=== PATIENT | male | born 1995 ===

== ENCOUNTER 2017-04-08 12:10 | Inpatient (IN) | payer MEDICAID ==
[2017-04-08] MEDS ORDERED: Sodium Chloride 0.9% 1,000 ML IV ONE (13:09)
--- NOTE | 2017-04-08 13:15 | C.PDOC ---
History Of Present Illness 21 y/o male presents to ED with complaints of fever and myalgias headache and photophobia since . At ED patient is febrile and denies recent travel, sick contacts or any other complaints at this time. no cough sore throat, ear pain, abdominal pain, ches tpain or other complaints Time Seen by Provider: 04/08/17 13:02 Chief Complaint (Nursing): Fever History Per: Patient History/Exam Limitations: no limitations Onset/Duration Of Symptoms: Days Current Symptoms Are (Timing): Still Present Associated Symptoms: Fever, Myalgias Past Medical History Reviewed: Historical Data, Nursing Documentation, Vital Signs Vital Signs: Last Vital Signs Temp 99.8 F H 04/08/17 14:48 Pulse 84 04/08/17 14:48 Resp 22 04/08/17 14:48 BP 100/61 04/08/17 14:48 Pulse Ox 100 04/08/17 15:20 Surgical History: No Surg Hx Family History: States: No Known Family Hx - Social History Hx Tobacco Use: No Hx Alcohol Use: No Hx Substance Use: No - Immunization History Hx Tetanus Toxoid Vaccination: Yes Hx Influenza Vaccination: Yes Hx Pneumococcal Vaccination: No Review Of Systems Except As Marked, All Systems Reviewed And Found Negative. Constitutional: Positive for: Fever. Negative for: Chills Cardiovascular: Negative for: Chest Pain Respiratory: Negative for: Shortness of Breath Gastrointestinal: Negative for: Nausea, Vomiting Skin: Negative for: Rash Neurological: Negative for: Weakness, Numbness Physical Exam - Physical Exam Appears: Non-toxic, No Acute Distress Skin: Normal Color, Warm, Dry, No Rash Head: Atraumatic, Normacephalic Eye(s): bilateral: Normal Inspection Oral Mucosa: Moist Neck: Normal ROM, Supple Chest: Symmetrical Cardiovascular: Rhythm Regular, No Murmur Respiratory: Normal Breath Sounds, No Rales, No Rhonchi, No Wheezing Gastrointestinal/Abdominal: Soft, No Tenderness, No Guarding, No Rebound Back: No CVA Tenderness, No Paraspinal Tenderness Extremity: Normal ROM, Capillary Refill (<2 seconds) Neurological/Psych: Oriented x3 ED Course And Treatment - Laboratory Results Result Diagrams: 04/08/17 13:42 04/08/17 13:42 O2 Sat by Pulse Oximetry: 100 (RA) Pulse Ox Interpretation: Normal - CT Scan/US head w/o contrast Other Rad Studies (CT/US): Interpreted By Me, Read By Radiologist CT/US Interpretation: PROCEDURE: CT HEAD WITHOUT CONTRAST. HISTORY: R/O Bleed. COMPARISON: None available. TECHNIQUE: Axial computed tomography images were obtained through the head/brain without intravenous contrast. Radiation dose: Total exam DLP = 845 mGy-cm. This CT exam was performed using one or more of the following dose reduction techniques: Automated exposure control, adjustment of the mA and/or kV according to patient size, and/or use of iterative reconstruction technique. FINDINGS: HEMORRHAGE: No intracranial hemorrhage. BRAIN: No mass effect or edema. No atrophy or chronic microvascular ischemic changes. VENTRICLES: Unremarkable. No hydrocephalus. CALVARIUM: Unremarkable. PARANASAL SINUSES: Unremarkable as visualized. No significant inflammatory changes. MASTOID AIR CELLS: Unremarkable as visualized. No inflammatory changes. OTHER FINDINGS: None. IMPRESSION: Normal CT of the Head. Critical Care Time - Critical Care Note Total Time (in mins): 45 Documented critical care: time excludes all time spent performing seperately billable procedures. Medical Decision Making Medical Decision Making: yan/photophobia- r/o meningitus, influenza, pna, uti, viral syndrome plan: * Blood work * UA * CXR * CT head pt consented for lp. performed understerile techinque. labs [email or web address] admitted to dr kurtz service r/o tamartis. Disposition - Disposition Disposition: HOSPITALIZED Disposition Time: 16:33 Condition: STABLE - Clinical Impression Clinical Impression: Headache, Sepsis - Scribe Statement The provider has reviewed the documentation as recorded by the Hailey Ford All medical record entries made by the Hailey were at my direction and personally dictated by me. I have reviewed the chart and agree that the record accurately reflects my personal performance of the history, physical exam, medical decision making, and the department course for this patient. I have also personally directed, reviewed, and agree with the discharge instructions and disposition. Decision To Admit - Pt Status Changed To: Hospital Disposition Of: Inpatient - Admit Certification Admit to Inpatient:: After my assessment, the patient will require hospitalization for at least two midnights. This is because of the severity of symptoms shown, intensity of services needed, and/or the medical risk in this patient being treated as an outpatient. - InPatient: Physician Admission Certification:: pt with r/o meningits - . Bed Request Type: Regular Admitting Physician: Jose F Kurtz Patient Diagnosis: Headache, Sepsis
[2017-04-08] MEDS ORDERED: cefTRIAXone 2 GM IN NS 2 GM/100 ML BAG IVPB STA (13:29)
[2017-04-08 13:46] LABS: BASO % 0.4 % (0.0-2.0); EOS % 0.1 % (0.0-4.0); HEMATOCRIT 43.9 % (35.0-51.0); LYMPH # 0.9 K/uL (1.0-4.3); LYMPH % 8.9 % (20.0-40.0); MEAN CELL VOLUME 85.2 fL (80.0-94.0); MEAN PLATELET VOLUME 9.1 fL (7.2-11.7); MONO # 0.9 K/uL (0.0-0.8); MONO % 8.7 % (0.0-10.0); NRBC % 0.1 % (0.0-2.0); PLATELET COUNT 201 K/uL (130-400); RED CELL DISTRIBUTION WIDTH 12.7 % (11.5-14.5); WHITE BLOOD COUNT 10.1 K/uL (4.8-10.8)
[2017-04-08 13:48] LABS: VENOUS BLOOD GAS BASE EXCESS 2.5 mmol/L (0.0-2.0); VENOUS BLOOD GAS PCO2 37 mmHg (40-60); VENOUS BLOOD PH 7.46 (7.32-7.43)
[2017-04-08 13:53] LABS: INR 1.2
[2017-04-08 13:57] LABS: ALB/GLOB RATIO 1.2 (1.0-2.1); ALKALINE PHOSPHATASE 52 U/L (38-126); ALT/SGPT 26 U/L (21-72); AST/SGOT 23 U/L (17-59); BILIRUBIN,TOTAL 0.4 mg/dL (0.2-1.3); BLOOD UREA NITROGEN 9 mg/dL (9-20); CALCIUM 9.3 mg/dl (8.6-10.4); CARBON DIOXIDE 24 mmol/L (22-30); CHLORIDE 100 mmol/L (98-107); GFR AFRICAN-AMERICAN > 60; GLUCOSE,RANDOM 91 mg/dL (75-110); POTASSIUM 3.9 mmol/L (3.6-5.2); SODIUM 139 mmol/L (132-148); TOTAL PROTEIN 7.6 g/dL (6.3-8.3)
[2017-04-08 14:01] LABS: RBC URINE 3 /hpf (0-3); URINE BILIRUBIN NEGATIVE (NEGATIVE); URINE BLOOD NEGATIVE (NEGATIVE); URINE COLOR Yellow (YELLOW); URINE GLUCOSE (UA) NORMAL (Normal); URINE KETONE TRACE mg/dL (NEGATIVE); URINE LEUKOCYTE ESTERASE NEG Leu/uL (Negative); URINE PROTEIN NEGATIVE (NEGATIVE); URINE UROBILINOGEN NORMAL mg/dL (0.2-1.0); WBC URINE 1 /hpf (0-5)
[2017-04-08] MEDS ORDERED: Vancomycin 1 GM 1 GM/250 ML BAG IVPB ONE (14:04)
[2017-04-08] MEDS ORDERED: cefTRIAXone IV 1 gm in Dextros 100 ML IVPB ONE (14:04)
[2017-04-08] MEDS ORDERED: Sodium Chloride 0.9% 1,000 ML ONE (14:04)
--- NOTE | 2017-04-08 14:44 | CT ---
PROCEDURE: CT HEAD WITHOUT CONTRAST. HISTORY: R/O Bleed COMPARISON: None available. TECHNIQUE: Axial computed tomography images were obtained through the head/brain without intravenous contrast. Radiation dose: Total exam DLP = 845 mGy-cm. This CT exam was performed using one or more of the following dose reduction techniques: Automated exposure control, adjustment of the mA and/or kV according to patient size, and/or use of iterative reconstruction technique. FINDINGS: HEMORRHAGE: No intracranial hemorrhage. BRAIN: No mass effect or edema. No atrophy or chronic microvascular ischemic changes. VENTRICLES: Unremarkable. No hydrocephalus. CALVARIUM: Unremarkable. PARANASAL SINUSES: Unremarkable as visualized. No significant inflammatory changes. MASTOID AIR CELLS: Unremarkable as visualized. No inflammatory changes. OTHER FINDINGS: None. IMPRESSION: Normal CT of the Head.
[2017-04-08 15:03] LABS: FLUID TYPE SPINAL FLUID
--- NOTE | 2017-04-08 16:01 | RAD ---
PROCEDURE: CHEST RADIOGRAPH, 1 VIEW Technique: Single view portable semi erect @ 13:15. HISTORY: SOB COMPARISON: 06/28/2016. FINDINGS: LUNGS: Clear. PLEURA: No pneumothorax or pleural fluid seen. CARDIOVASCULAR: Normal. OSSEOUS STRUCTURES: No significant abnormalities. VISUALIZED UPPER ABDOMEN: Normal. OTHER FINDINGS: None. IMPRESSION: No active disease. No acute/significant interval changes. No preliminary report provided by emergency department personnel.
[2017-04-08 16:55] LABS: NEUTROPHIL 86 % (50-75); TOTAL CELLS COUNTED 100
[2017-04-09] MEDS: Acyclovir 500 MG in Sodium Chloride 0.9% 100 ML IV SCH ×4 (00:42→23:00)
[2017-04-09] MEDS: cefTRIAXone 2 GM in Sodium Chloride 0.9% 100 ML IVPB SCH ×2 (02:23→16:00)
--- NOTE | 2017-04-09 13:04 | CP.PCM.CON ---
History of Present Illness - History of Present Illness History of Present Illness: 21 y/o male presents to ED with complaints of fever and myalgias headache and photophobia since . At ED patient is febrile and denies recent travel, sick contacts or any other complaints at this time. no cough sore throat, ear pain, abdominal pain, ches tpain or other complaints Review of Systems - Constitutional Constitutional: As Per HPI, Fatigue, Fever, Malaise - EENT Eyes: absent: As Per HPI, Blind Spots, Blurred Vision, Change in Vision, Decreased Night Vision, Diplopia, Discharge, Dry Eye, Exophthalmos, Floaters, Irritation, Itchy Eyes, Loss of Peripheral Vision, Pain, Photophobia, Requires Corrective Lenses, Sees Flashes, Spots in Vision, Tunnel Vision, Other Visual Disturbances, Loss of Vision, Other Ears: absent: As Per HPI, Decreased Hearing, Ear Discharge, Ear Pain, Tinnitus, Abnormal Hearing, Disequilibrium, Dizziness, Other Nose/Mouth/Throat: absent: As Per HPI, Epistaxis, Nasal Congestion, Nasal Discharge, Nasal Obstruction, Nasal Trauma, Nose Pain, Post Nasal Drip, Sinus Pain, Sinus Pressure, Bleeding Gums, Change in Voice, Dental Pain, Dry Mouth, Dysphagia, Halitosis, Hoarsness, Lip Swelling, Mouth Lesions, Mouth Pain, Odynophagia, Sore Throat, Throat Swelling, Tongue Swelling, Facial Pain, Neck Pain, Neck Mass, Other - Cardiovascular Cardiovascular: absent: As Per HPI, Acrocyanosis, Chest Pain, Chest Pain at Rest , Chest Pain with Activity, Claudication, Diaphoresis, Dyspnea, Dyspnea on Exertion, Edema, Irregular Heart Rhythm, Pain Radiating to Arm/Neck/Jaw, Leg Edema, Leg Ulcers, Lightheadedness, Orthopnea, Palpitations, Paroxysmal Nocturnal Dyspnea, Pedal Edema, Radiating Pain, Rapid Heart Rate, Slow Heart Rate, Syncope, Other - Respiratory Respiratory: absent: As Per HPI, Cough, Dyspnea, Hemoptysis, Dyspnea on Exertion , Wheezing, Snoring, Stridor, Pain on Inspiration, Chest Congestion, Excessive Mucous Production, Change in Mucous Color, Pain with Coughing, Other - Gastrointestinal Gastrointestinal: absent: As Per HPI, Abdominal Pain, Belching, Bloating, Change in Bowel Habits, Change in Stool Character, Coffee Ground Emesis, Constipation, Cramping, Diarrhea, Dyspepsia, Dysphagia, Early Satiety, Excessive Flatus, Fecal Incontinence, Heartburn, Hematemesis, Hematochezia, Loose Stools, Melena, Nausea, Odynophagia, Temesmus, Vomiting, Other - Genitourinary Genitourinary: absent: As Per HPI, Change in Urinary Stream, Difficulty Urinating, Dysuria, Flank Pain, Hematuria, Pyuria, Nocturia, Urinary Incontinence, Urinary Frequency, Urinary Hesitance, Urinary Urgency, Voiding Freq/Small Amts, Freq UTI, Hx Renal/Bladder Calculi, Hx /Renal Surgery, Bladder Distension, Other - Musculoskeletal Musculoskeletal: absent: As Per HPI, Abnormal Gait, Arthralgias, Atrophy, Back Pain, Deformity, Joint Swelling, Limited Range of Motion, Loss of Height, Muscle Cramps, Muscle Weakness, Myalgias, Neck Pain, Numbness, Radiating Pain into Limb, Stiffness, Tingling, Other - Integumentary Integumentary: absent: As Per HPI, Acne, Alopecia, Bleeding Lesions, Change in Hair, Change in Nails, Change in Pigmentation, Changing Lesions, Dry Skin, Erythema, Furuncle, Hirsutism, Lesions, New Lesions, Non-Healing Lesions, Photosensitivity, Pruritus, Rash, Skin Pain, Skin Ulcer, Sores, Striae, Swelling , Unusual Bruising, Wounds, Jaundice, Other - Neurological Neurological: As Per HPI - Psychiatric Psychiatric: absent: As Per HPI, Abnormal Sleep Pattern, Anhedonia, Anxiety, Auditory Hallucinations, Behavioral Changes, Change in Appetite, Change in Libido, Confusion, Depression, Difficulty Concentrating, Hallucinations, Homicidal Ideation, Hopelessness, Irritability, Memory Loss, Mood Swings, Panic Attacks, Paranoia, Suicidal Ideation, Visual Hallucinations, Tactile Hallucinations, Other - Endocrine Endocrine: absent: As Per HPI, Change in Body Appearance, Change in Libido, Cold Intolorance, Deepening of Voice, Excessive Sweating, Fatigue, Flushing, Heat Intolorance, Increase in Ring/Shoe/Hat Size, Palpitations, Polydipsia, Polyphagia, Polyuria, Other - Hematologic/Lymphatic Hematologic: absent: As Per HPI, Easy Bleeding, Easy Bruising, Lymphadenopathy, Other Past Patient History - Infectious Disease Hx of Infectious Diseases: None - Past Medical History & Family History Past Medical History?: Yes - Past Social History Smoking Status: Never Smoked - CARDIAC Hx Cardiac Disorders: No - PULMONARY Hx Respiratory Disorders: No - NEUROLOGICAL Hx Neurological Disorder: No - HEENT Hx HEENT Problems: No - RENAL Hx Chronic Kidney Disease: No - ENDOCRINE/METABOLIC Hx Endocrine Disorders: No - HEMATOLOGICAL/ONCOLOGICAL Hx Blood Disorders: No - INTEGUMENTARY Hx Dermatological Problems: No - MUSCULOSKELETAL/RHEUMATOLOGICAL Hx Musculoskeletal Disorders: No Hx Falls: No - GASTROINTESTINAL Hx Gastrointestinal Disorders: No - GENITOURINARY/GYNECOLOGICAL Hx Genitourinary Disorders: No - PSYCHIATRIC Hx Psychophysiologic Disorder: No Hx Substance Use: No - SURGICAL HISTORY Hx Surgeries: No - ANESTHESIA Hx Anesthesia: No Meds Allergies/Adverse Reactions: Allergies Allergy/AdvReac Type Severity Reaction Status Date / Time No Known Allergies Allergy Unverified 12/05/13 12:48 - Medications Medications: Current Medications Acetaminophen (Tylenol 325mg Tab) 650 mg PO Q6 PRN PRN Reason: Fever >100.4 F Last Admin: 04/09/17 12:34 Dose: 650 mg Ceftriaxone Sodium 2 gm/ (Sodium Chloride) 100 mls @ 100 mls/hr IVPB Q12H [facility] Last Admin: 04/09/17 02:23 Dose: 100 mls/hr Vancomycin HCl 1,000 mg/ (Sodium Chloride) 250 mls @ 166.6 mls/hr IVPB Q12H [facility] Last Admin: 04/09/17 03:33 Dose: 166.6 mls/hr Acyclovir 500 mg/ Sodium (Chloride) 100 mls @ 100 mls/hr IV Q8H [facility] Last Admin: 04/09/17 08:09 Dose: 100 mls/hr Physical Exam - Constitutional Appears: Non-toxic, Chronically Ill - Head Exam Head Exam: NORMOCEPHALIC - Eye Exam Eye Exam: PERRL. absent: Scleral icterus - ENT Exam ENT Exam: Mucous Membranes Dry, Normal External Ear Exam - Neck Exam Neck exam: Negative for: Lymphadenopathy - Respiratory Exam Respiratory Exam: Decreased Breath Sounds, Clear to Auscultation Bilateral - Cardiovascular Exam Cardiovascular Exam: REGULAR RHYTHM - GI/Abdominal Exam GI & Abdominal Exam: Diminished Bowel Sounds, Soft. absent: Tenderness - Rectal Exam Rectal Exam: Deferred - Exam Exam: NORMAL INSPECTION - Extremities Exam Extremities exam: Negative for: pedal edema - Back Exam Back exam: absent: CVA tenderness (L), CVA tenderness (R) - Neurological Exam Neurological exam: Alert, CN II-XII Intact, Oriented x3, Reflexes Normal - Psychiatric Exam Psychiatric exam: Normal Mood - Skin Skin Exam: Dry, Intact Results - Vital Signs Recent Vital Signs: Last Vital Signs Temp 97.3 F L 04/09/17 07:40 Pulse 64 04/09/17 07:40 Resp 20 04/09/17 07:40 BP 107/51 L 04/09/17 07:40 Pulse Ox 97 04/09/17 07:40 - Labs Result Diagrams: 04/08/17 13:42 04/08/17 13:42 Labs: Laboratory Results - last 24 hr 04/08/17 04/08/17 15:01 15:01 Fluid Type Spinal fluid CSF Volume 2 H CSF Appearance Clear/colorless CSF WBC 3.0 CSF RBC 58.0 H CSF Total Cell Counted CSF Monos/Macrophages TEST NOT PERFORMED CSF Comment TEST NOT PERFORMED CSF Glucose 56 CSF Total Protein 46.0 Assessment & Plan (1) Headache Status: Acute (2) Sepsis Status: Acute (3) Bronchitis Status: Acute (4) Headache Status: Acute - Assessment and Plan (Free Text) Assessment: FEVER AND HEADACHE POSSIBLY VIRAL CONT IV ANTIBIOTICS
[2017-04-09] MEDS: Apap-Butalbital-Caffeine 325-50-40mg Tab PO PRN ×2 (17:07→23:07)
--- NOTE | 2017-04-09 20:39 | CON ---
DATE: 04/09/2017 HISTORY OF PRESENT ILLNESS: This is a 21-year-old male with the past medical history not significant, came with the complaint of fever, headache, and photophobia. Spinal tap was done, which was reported normal, and the patient is feeling less headache, only pressure like on the top of the head, no nausea, no vomiting. Called to evaluate the patient. PAST MEDICAL HISTORY: As above. REVIEW OF SYSTEMS: A 10-point review of systems was negative except for headache. PHYSICAL EXAMINATION: VITAL SIGNS: Blood pressure 100/61. HEENT: Normocephalic and atraumatic. NECK: Supple. NEUROLOGIC: Alert, awake, and oriented x3. No aphasia. Cranial nerves II through XII are tested. Pupils reactive. EOM intact. Visual mukherjee full. No facial asymmetry. Tongue midline. Motor examination, moves all the extremities equally. Tone normal. Deep tendon reflexes . Both plantars are downgoing. Sensory appears intact. Cerebellar and gait normal. LABORATORY DATA: WBC 10.1, hemoglobin 14.9, hematocrit 43.9, and platelets 201. Sodium 139, potassium 3.9, chloride 100, CO2 of 24, glucose 91, BUN 9, and creatinine 0.9. CAT scan of the head was negative and normal. PLAN: Continue present management. We will follow up. Royal George MD
--- NOTE | 2017-04-09 22:50 | CP.PCM.HP ---
History of Present Illness - History of Present Illness History of Present Illness: CC: Headache, dizziness and fever HPI: 21 y/o male who no significant PMH presents to ED with complaints of fever and myalgias headache and photophobia since . At ED patient is febrile and denies recent travel, sick contacts or any other complaints at this time. no cough sore throat, ear pain, abdominal pain, ches tpain or other complaints denies any bowel and blaadder complains, no fall, injury Review of Systems - Review of Systems Systems not reviewed;Unavailable: Acuity of Condition - Constitutional Constitutional: Anorexia, Fever, Malaise, Weakness - EENT Eyes: absent: As Per HPI, Blind Spots, Blurred Vision, Change in Vision, Decreased Night Vision, Diplopia, Discharge, Dry Eye, Exophthalmos, Floaters, Irritation, Itchy Eyes, Loss of Peripheral Vision, Pain, Photophobia, Requires Corrective Lenses, Sees Flashes, Spots in Vision, Tunnel Vision, Other Visual Disturbances, Loss of Vision, Other Nose/Mouth/Throat: Nasal Congestion, Nasal Discharge. absent: As Per HPI, Epistaxis, Nasal Obstruction, Nasal Trauma, Nose Pain, Post Nasal Drip, Sinus Pain, Sinus Pressure, Bleeding Gums, Change in Voice, Dental Pain, Dry Mouth, Dysphagia, Halitosis, Hoarsness, Lip Swelling, Mouth Lesions, Mouth Pain, Odynophagia, Sore Throat, Throat Swelling, Tongue Swelling, Facial Pain, Neck Pain, Neck Mass, Other - Cardiovascular Cardiovascular: absent: As Per HPI, Acrocyanosis, Chest Pain, Chest Pain at Rest , Chest Pain with Activity, Claudication, Diaphoresis, Dyspnea, Dyspnea on Exertion, Edema, Irregular Heart Rhythm, Pain Radiating to Arm/Neck/Jaw, Leg Edema, Leg Ulcers, Lightheadedness, Orthopnea, Palpitations, Paroxysmal Nocturnal Dyspnea, Pedal Edema, Radiating Pain, Rapid Heart Rate, Slow Heart Rate, Syncope, Other - Respiratory Respiratory: absent: As Per HPI, Cough, Dyspnea, Hemoptysis, Dyspnea on Exertion , Wheezing, Snoring, Stridor, Pain on Inspiration, Chest Congestion, Excessive Mucous Production, Change in Mucous Color, Pain with Coughing, Other - Gastrointestinal Gastrointestinal: absent: As Per HPI, Abdominal Pain, Belching, Bloating, Change in Bowel Habits, Change in Stool Character, Coffee Ground Emesis, Constipation, Cramping, Diarrhea, Dyspepsia, Dysphagia, Early Satiety, Excessive Flatus, Fecal Incontinence, Heartburn, Hematemesis, Hematochezia, Loose Stools, Melena, Nausea, Odynophagia, Temesmus, Vomiting, Other - Genitourinary Genitourinary: absent: As Per HPI, Change in Urinary Stream, Difficulty Urinating, Dysuria, Flank Pain, Hematuria, Pyuria, Nocturia, Urinary Incontinence, Urinary Frequency, Urinary Hesitance, Urinary Urgency, Voiding Freq/Small Amts, Freq UTI, Hx Renal/Bladder Calculi, Hx /Renal Surgery, Bladder Distension, Other - Musculoskeletal Musculoskeletal: Muscle Cramps, Muscle Weakness, Myalgias, Neck Pain - Integumentary Integumentary: absent: As Per HPI, Acne, Alopecia, Bleeding Lesions, Change in Hair, Change in Nails, Change in Pigmentation, Changing Lesions, Dry Skin, Erythema, Furuncle, Hirsutism, Lesions, New Lesions, Non-Healing Lesions, Photosensitivity, Pruritus, Rash, Skin Pain, Skin Ulcer, Sores, Striae, Swelling , Unusual Bruising, Wounds, Jaundice, Other - Neurological Neurological: absent: As Per HPI, Abnormal Gait, Abnormal Hearing, Abnormal Movements, Abnormal Speech, Behavioral Changes, Burning Sensations, Confusion, Convulsions, Disequilibrium, Dizziness, Numbness, Focal Weakness, Frequent Falls , Headaches, Lack of Coordination, Loss of Vision, Memory Loss, Paresthesias, Radicular Pain, Restless Legs, Sensory Deficit, Syncope, Tingling, Tremor, Vertigo, Weakness, Other Visual Disturbances, Other Past Patient History - Infectious Disease Hx of Infectious Diseases: None - Past Medical History & Family History Past Medical History?: Yes - Past Social History Smoking Status: Never Smoked - CARDIAC Hx Cardiac Disorders: No - PULMONARY Hx Respiratory Disorders: No - NEUROLOGICAL Hx Neurological Disorder: No - HEENT Hx HEENT Problems: No - RENAL Hx Chronic Kidney Disease: No - ENDOCRINE/METABOLIC Hx Endocrine Disorders: No - HEMATOLOGICAL/ONCOLOGICAL Hx Blood Disorders: No - INTEGUMENTARY Hx Dermatological Problems: No - MUSCULOSKELETAL/RHEUMATOLOGICAL Hx Musculoskeletal Disorders: No Hx Falls: No - GASTROINTESTINAL Hx Gastrointestinal Disorders: No - GENITOURINARY/GYNECOLOGICAL Hx Genitourinary Disorders: No - PSYCHIATRIC Hx Psychophysiologic Disorder: No Hx Substance Use: No - SURGICAL HISTORY Hx Surgeries: No - ANESTHESIA Hx Anesthesia: No Meds Allergies/Adverse Reactions: Allergies Allergy/AdvReac Type Severity Reaction Status Date / Time No Known Allergies Allergy Unverified 12/05/13 12:48 Physical Exam - Constitutional Additional comments: young skinny male looks healthy overall in acute pain and distress - Eye Exam Eye Exam: EOMI, Normal appearance, PERRL Pupil Exam: NORMAL ACCOMODATION, PERRL - ENT Exam ENT Exam: Mucous Membranes Moist - Neck Exam Neck exam: Positive for: Normal Inspection Additional comments: neg kernings and brudnizki sign no stifness, rigidity - Respiratory Exam Respiratory Exam: Clear to Auscultation Bilateral, NORMAL BREATHING PATTERN - Cardiovascular Exam Cardiovascular Exam: REGULAR RHYTHM - GI/Abdominal Exam GI & Abdominal Exam: Normal Bowel Sounds, Soft. absent: Tenderness - Rectal Exam Rectal Exam: Deferred Results - Vital Signs Recent Vital Signs: Last Vital Signs Temp 98.1 F 04/09/17 15:30 Pulse 71 04/09/17 15:30 Resp 20 04/09/17 15:30 BP 103/62 04/09/17 15:30 Pulse Ox 99 04/09/17 15:30 - Labs Result Diagrams: 04/08/17 13:42 04/08/17 13:42 Assessment & Plan (1) Meningitis Assessment and Plan: gram stain Status: Acute (2) Encephalitis Assessment and Plan: CSF cultures Status: Acute (3) Headache Status: Acute
[2017-04-10] MEDS: cefTRIAXone 2 GM in Sodium Chloride 0.9% 100 ML IVPB SCH ×2 (02:53→16:00)
[2017-04-10] MEDS: Acyclovir 500 MG in Sodium Chloride 0.9% 100 ML IV SCH ×3 (08:03→22:52)
[2017-04-10] MEDS: Apap-Butalbital-Caffeine 325-50-40mg Tab PO PRN ×2 (08:09→22:52)
--- NOTE | 2017-04-10 09:45 | CP.PCM.PN ---
Subjective - Date & Time of Evaluation Date of Evaluation: 04/10/17 Time of Evaluation: 21:50 Objective - Vital Signs/Intake and Output Vital Signs (last 24 hours): Temp Pulse Resp BP Pulse Ox 98.3 F 69 20 111/67 99 04/10/17 07:45 04/10/17 07:45 04/10/17 07:45 04/10/17 07:45 04/10/17 07:45 Intake and Output: 04/10/17 04/10/17 06:59 18:59 Intake Total 450 Balance 450 - Medications Medications: Current Medications Acetaminophen (Tylenol 325mg Tab) 650 mg PO Q6 PRN PRN Reason: Fever >100.4 F Last Admin: 04/09/17 12:34 Dose: 650 mg Acetaminophen/Butalbital/Caffeine (Fioricet) 1 tab PO Q4 PRN PRN Reason: Headache Last Admin: 04/10/17 08:09 Dose: 1 tab Ceftriaxone Sodium 2 gm/ (Sodium Chloride) 100 mls @ 100 mls/hr IVPB Q12H [facility] Last Admin: 04/10/17 02:53 Dose: 100 mls/hr Vancomycin HCl 1,000 mg/ (Sodium Chloride) 250 mls @ 166.6 mls/hr IVPB Q12H [facility] Last Admin: 04/10/17 04:17 Dose: 166.6 mls/hr Acyclovir 500 mg/ Sodium (Chloride) 100 mls @ 100 mls/hr IV Q8H [facility] Last Admin: 04/10/17 08:03 Dose: 100 mls/hr - Labs Labs: PT 14.0 SECONDS (9.7-12.2) H 04/08/17 13:42 INR 1.2 04/08/17 13:42 APTT 30 SECONDS (21-34) 04/08/17 13:42 Assessment and Plan (1) Meningitis Status: Acute (2) Encephalitis Status: Acute (3) Headache Status: Acute
--- NOTE | 2017-04-10 17:26 | CP.PCM.PN ---
Subjective - Date & Time of Evaluation Date of Evaluation: 04/10/17 Time of Evaluation: 08:00 - Subjective Subjective: afebrile nad Objective - Vital Signs/Intake and Output Vital Signs (last 24 hours): Temp Pulse Resp BP Pulse Ox 97.9 F 63 18 113/69 99 04/10/17 16:00 04/10/17 16:00 04/10/17 16:00 04/10/17 16:00 04/10/17 16:00 Intake and Output: 04/10/17 04/10/17 06:59 18:59 Intake Total 450 Balance 450 - Medications Medications: Current Medications Acetaminophen (Tylenol 325mg Tab) 650 mg PO Q6 PRN PRN Reason: Fever >100.4 F Last Admin: 04/09/17 12:34 Dose: 650 mg Acetaminophen/Butalbital/Caffeine (Fioricet) 1 tab PO Q4 PRN PRN Reason: Headache Last Admin: 04/10/17 08:09 Dose: 1 tab Ceftriaxone Sodium 2 gm/ (Sodium Chloride) 100 mls @ 100 mls/hr IVPB Q12H [facility] Last Admin: 04/10/17 02:53 Dose: 100 mls/hr Vancomycin HCl 1,000 mg/ (Sodium Chloride) 250 mls @ 166.6 mls/hr IVPB Q12H [facility] Last Admin: 04/10/17 14:01 Dose: 166.6 mls/hr Acyclovir 500 mg/ Sodium (Chloride) 100 mls @ 100 mls/hr IV Q8H [facility] Last Admin: 04/10/17 08:03 Dose: 100 mls/hr - Labs Labs: PT 14.0 SECONDS (9.7-12.2) H 04/08/17 13:42 INR 1.2 04/08/17 13:42 APTT 30 SECONDS (21-34) 04/08/17 13:42 - Constitutional Appears: Non-toxic - Head Exam Head Exam: NORMOCEPHALIC - Eye Exam Eye Exam: PERRL - ENT Exam ENT Exam: Mucous Membranes Dry - Neck Exam Neck Exam: absent: Lymphadenopathy - Respiratory Exam Respiratory Exam: Decreased Breath Sounds, Clear to Ausculation Bilateral - Cardiovascular Exam Cardiovascular Exam: REGULAR RHYTHM - GI/Abdominal Exam GI & Abdominal Exam: Distended, Soft - Rectal Exam Rectal Exam: Deferred - Exam Exam: NORMAL INSPECTION - Extremities Exam Extremities Exam: absent: Calf Tenderness, Pedal Edema - Back Exam Back Exam: absent: CVA tenderness (L), CVA tenderness (R) - Neurological Exam Neurological Exam: Alert, Awake, Oriented x3 - Psychiatric Exam Psychiatric exam: Normal Mood - Skin Skin Exam: Dry, Intact Assessment and Plan (1) Headache Status: Acute (2) Sepsis Status: Acute (3) Bronchitis Status: Acute (4) Headache Status: Acute - Assessment and Plan (Free Text) Assessment: cute febrile syndrome with headache will d/c vanco await cultures and serologies
[2017-04-11 01:50] VITALS: RESP 20
[2017-04-11] MEDS: cefTRIAXone 2 GM in Sodium Chloride 0.9% 100 ML IVPB SCH ×2 (03:27→15:36)
[2017-04-11] MEDS: Apap-Butalbital-Caffeine 325-50-40mg Tab PO PRN ×2 (08:24→12:11)
[2017-04-11] MEDS: Acyclovir 500 MG in Sodium Chloride 0.9% 100 ML IV SCH ×2 (08:24→15:36)
[2017-04-11 11:49] LABS: BASO % 0.7 % (0.0-2.0); EOS # 0.2 K/uL (0.0-0.7); EOS % 3.7 % (0.0-4.0); HEMATOCRIT 43.7 % (35.0-51.0); LYMPH # 1.2 K/uL (1.0-4.3); LYMPH % 17.8 % (20.0-40.0); MEAN CELL VOLUME 85.8 fL (80.0-94.0); MEAN CORPUSCULAR HEMOGLOBIN 28.9 pg (27.0-31.0); MEAN CORPUSCULAR HGB CONC 33.7 g/dL (33.0-37.0); MEAN PLATELET VOLUME 9.2 fL (7.2-11.7); MONO # 0.5 K/uL (0.0-0.8); MONO % 8.4 % (0.0-10.0); NRBC % 0.1 % (0.0-2.0); RED CELL DISTRIBUTION WIDTH 12.9 % (11.5-14.5); WHITE BLOOD COUNT 6.5 K/uL (4.8-10.8)
[2017-04-11 12:01] LABS: CHLORIDE 103 mmol/L (98-107)
[2017-04-11 12:02] LABS: POTASSIUM 3.9 mmol/L (3.6-5.2); SODIUM 142 mmol/L (132-148)
[2017-04-11 12:05] LABS: BLOOD UREA NITROGEN 9 mg/dL (9-20); CARBON DIOXIDE 24 mmol/L (22-30); GFR AFRICAN-AMERICAN > 60; GLUCOSE,RANDOM 115 mg/dL (75-110)
[2017-04-11 12:06] LABS: CALCIUM 9.2 mg/dl (8.6-10.4)
--- NOTE | 2017-04-11 15:56 | CP.PCM.PN ---
Subjective - Date & Time of Evaluation Date of Evaluation: 04/11/17 Time of Evaluation: 10:00 - Subjective Subjective: FEELS WELL ALL CULTURES NEG OK TO D/C ACYCLOVIR Objective - Vital Signs/Intake and Output Vital Signs (last 24 hours): Temp Pulse Resp BP Pulse Ox 98.3 F 67 20 109/64 98 04/11/17 07:45 04/11/17 07:45 04/11/17 07:45 04/11/17 07:45 04/11/17 07:45 Intake and Output: 04/11/17 04/11/17 06:59 18:59 Intake Total 350 Balance 350 - Medications Medications: Current Medications Acetaminophen (Tylenol 325mg Tab) 650 mg PO Q6 PRN PRN Reason: Fever >100.4 F Last Admin: 04/09/17 12:34 Dose: 650 mg Acetaminophen/Butalbital/Caffeine (Fioricet) 1 tab PO Q4 PRN PRN Reason: Headache Last Admin: 04/11/17 12:11 Dose: 1 tab Ceftriaxone Sodium 2 gm/ (Sodium Chloride) 100 mls @ 100 mls/hr IVPB Q12H [facility] Last Admin: 04/11/17 15:36 Dose: 100 mls/hr Acyclovir 500 mg/ Sodium (Chloride) 100 mls @ 100 mls/hr IV Q8H [facility] Last Admin: 04/11/17 15:36 Dose: 100 mls/hr - Labs Labs: 04/11/17 11:41 04/11/17 11:41 PT 14.0 SECONDS (9.7-12.2) H 04/08/17 13:42 INR 1.2 04/08/17 13:42 APTT 30 SECONDS (21-34) 04/08/17 13:42 - Constitutional Appears: Non-toxic, Chronically Ill - Head Exam Head Exam: NORMOCEPHALIC - Eye Exam Eye Exam: PERRL. absent: Scleral icterus - ENT Exam ENT Exam: Mucous Membranes Dry, Normal External Ear Exam - Neck Exam Neck Exam: absent: Lymphadenopathy - Respiratory Exam Respiratory Exam: Decreased Breath Sounds - Cardiovascular Exam Cardiovascular Exam: REGULAR RHYTHM - GI/Abdominal Exam GI & Abdominal Exam: Distended, Soft - Rectal Exam Rectal Exam: Deferred - Exam Exam: NORMAL INSPECTION - Extremities Exam Extremities Exam: absent: Calf Tenderness, Pedal Edema - Back Exam Back Exam: absent: CVA tenderness (L), CVA tenderness (R), NORMAL INSPECTION - Neurological Exam Neurological Exam: Alert, Awake, Oriented x3 Assessment and Plan (1) Headache Status: Acute (2) Sepsis Status: Acute (3) Bronchitis Status: Acute (4) Headache Status: Acute
--- NOTE | 2017-04-11 18:59 | CP.PCM.PN ---
Subjective - Date & Time of Evaluation Date of Evaluation: 04/11/17 Objective - Vital Signs/Intake and Output Vital Signs (last 24 hours): Temp Pulse Resp BP Pulse Ox 97.8 F 56 L 20 100/62 99 04/11/17 15:30 04/11/17 15:30 04/11/17 15:30 04/11/17 15:30 04/11/17 15:30 Intake and Output: 04/11/17 04/11/17 06:59 18:59 Intake Total 350 400 Balance 350 400 - Medications Medications: Current Medications Acetaminophen (Tylenol 325mg Tab) 650 mg PO Q6 PRN PRN Reason: Fever >100.4 F Last Admin: 04/09/17 12:34 Dose: 650 mg Acetaminophen/Butalbital/Caffeine (Fioricet) 1 tab PO Q4 PRN PRN Reason: Headache Last Admin: 04/11/17 12:11 Dose: 1 tab Ceftriaxone Sodium 2 gm/ (Sodium Chloride) 100 mls @ 100 mls/hr IVPB DAILY [facility] - Labs Labs: 04/11/17 11:41 04/11/17 11:41 PT 14.0 SECONDS (9.7-12.2) H 04/08/17 13:42 INR 1.2 04/08/17 13:42 APTT 30 SECONDS (21-34) 04/08/17 13:42 Assessment and Plan (1) Meningitis Status: Acute (2) Encephalitis Status: Acute (3) Headache Status: Acute
[2017-04-12 08:53] VITALS: BP 108/61; PULSE 59; TEMP 97.9; O2SAT 98
[2017-04-12] MEDS ORDERED: cefTRIAXone 2 GM in Sodium Chloride 0.9% 100 ML IVPB SCH (10:00)
[2017-04-12] MEDS ORDERED: Pneumococcal 23-Valent Vaccine IM ONE (12:30)
--- NOTE | 2017-04-12 23:00 | CP.PCM.DIS ---
Provider - Provider Date of Admission: 04/08/17 14:58 Attending physician: Jose F Kurtz MD Diagnosis - Discharge Diagnosis (1) Meningitis Status: Acute (2) Encephalitis Status: Acute (3) Headache Status: Acute Hospital Course - Lab Results Lab Results: Most Recent Lab Values WBC 6.5 K/uL (4.8-10.8) 04/11/17 11:41 RBC 5.10 Mil/uL (4.40-5.90) 04/11/17 11:41 Hgb 14.8 g/dL (12.0-18.0) 04/11/17 11:41 Hct 43.7 % (35.0-51.0) 04/11/17 11:41 MCV 85.8 fL (80.0-94.0) 04/11/17 11:41 MCH 28.9 pg (27.0-31.0) 04/11/17 11:41 MCHC 33.7 g/dL (33.0-37.0) 04/11/17 11:41 RDW 12.9 % (11.5-14.5) 04/11/17 11:41 Plt Count 253 K/uL (130-400) 04/11/17 11:41 MPV 9.2 fL (7.2-11.7) 04/11/17 11:41 Neut % (Auto) 69.4 % (50.0-75.0) 04/11/17 11:41 Lymph % (Auto) 17.8 % (20.0-40.0) L 04/11/17 11:41 [place] % (Auto) 8.4 % (0.0-10.0) 04/11/17 11:41 Eos % (Auto) 3.7 % (0.0-4.0) 04/11/17 11:41 Baso % (Auto) 0.7 % (0.0-2.0) 04/11/17 11:41 Neut # 4.5 K/uL (1.8-7.0) 04/11/17 11:41 Lymph # 1.2 K/uL (1.0-4.3) 04/11/17 11:41 [place] # 0.5 K/uL (0.0-0.8) 04/11/17 11:41 Eos # 0.2 K/uL (0.0-0.7) 04/11/17 11:41 Baso # 0.0 K/uL (0.0-0.2) 04/11/17 11:41 Neutrophils % (Manual) 86 % (50-75) H 04/08/17 13:42 Band Neutrophils % 1 % (0-2) 04/08/17 13:42 Lymphocytes % (Manual) 7 % (20-40) L 04/08/17 13:42 Monocytes % (Manual) 6 % (0-10) 04/08/17 13:42 Platelet Estimate Normal (NORMAL) 04/08/17 13:42 PT 14.0 SECONDS (9.7-12.2) H 04/08/17 13:42 INR 1.2 04/08/17 13:42 APTT 30 SECONDS (21-34) 04/08/17 13:42 pO2 57 mm/Hg (30-55) H 04/08/17 13:41 VBG pH 7.46 (7.32-7.43) H 04/08/17 13:41 VBG pCO2 37 mmHg (40-60) L 04/08/17 13:41 VBG HCO3 26.7 mmol/L 04/08/17 13:41 VBG Total CO2 27.4 mmol/L (22-28) 04/08/17 13:41 VBG O2 Sat (Calc) 94.4 % (40-65) H 04/08/17 13:41 VBG Base Excess 2.5 mmol/L (0.0-2.0) H 04/08/17 13:41 VBG Potassium 4.0 mmol/L (3.6-5.2) 04/08/17 13:41 Sodium 140.0 mmol/l (132-148) 04/08/17 13:41 Chloride 104.0 mmol/L (98-107) 04/08/17 13:41 Glucose 102 mg/dl (75-110) 04/08/17 13:41 Lactate 1.3 mmol/L (0.7-2.1) 04/08/17 13:41 Sodium 142 mmol/L (132-148) 04/11/17 11:41 Potassium 3.9 mmol/L (3.6-5.2) 04/11/17 11:41 Chloride 103 mmol/L (98-107) 04/11/17 11:41 Carbon Dioxide 24 mmol/L (22-30) 04/11/17 11:41 Anion Gap 18 (10-20) 04/11/17 11:41 BUN 9 mg/dL (9-20) 04/11/17 11:41 Creatinine 0.8 MG/DL (0.8-1.5) 04/11/17 11:41 Est GFR ( Amer) > 60 04/11/17 11:41 Est GFR (Non-Af Amer) > 60 04/11/17 11:41 Random Glucose 115 mg/dL (75-110) H 04/11/17 11:41 Calcium 9.2 mg/dl (8.6-10.4) 04/11/17 11:41 Total Bilirubin 0.4 mg/dL (0.2-1.3) 04/08/17 13:42 AST 23 U/L (17-59) 04/08/17 13:42 ALT 26 U/L (21-72) 04/08/17 13:42 Alkaline Phosphatase 52 U/L (38-126) 04/08/17 13:42 Total Protein 7.6 g/dL (6.3-8.3) 04/08/17 13:42 Albumin 4.2 g/dL (3.5-5.0) 04/08/17 13:42 Globulin 3.4 gm/dL (2.2-3.9) 04/08/17 13:42 Albumin/Globulin Ratio 1.2 (1.0-2.1) 04/08/17 13:42 Venous Blood Potassium 4.0 mmol/L (3.6-5.2) 04/08/17 13:41 Urine Color Yellow (YELLOW) 04/08/17 13:48 Urine Clarity Clear (Clear) 04/08/17 13:48 Urine pH 9.0 (5.0-8.0) 04/08/17 13:48 Ur Specific [place] 1.010 (1.003-1.030) 04/08/17 13:48 Urine Protein Negative mg/dL (NEGATIVE) 04/08/17 13:48 Urine Glucose (UA) Normal mg/dL (Normal) 04/08/17 13:48 Urine Ketones Trace mg/dL (NEGATIVE) 04/08/17 13:48 Urine Blood Negative (NEGATIVE) 04/08/17 13:48 Urine Nitrate Negative (NEGATIVE) 04/08/17 13:48 Urine Bilirubin Negative (NEGATIVE) 04/08/17 13:48 Urine Urobilinogen Normal mg/dL (0.2-1.0) 04/08/17 13:48 Ur Leukocyte Esterase Neg [place]/uL (Negative) 04/08/17 13:48 Urine WBC (Auto) 1 /hpf (0-5) 04/08/17 13:48 Urine RBC (Auto) 3 /hpf (0-3) 04/08/17 13:48 Fluid Type Spinal fluid 04/08/17 15:01 CSF Volume 2 mL (0-1) H 04/08/17 15:01 CSF Appearance Clear/colorless (CLEAR) 04/08/17 15:01 CSF WBC 3.0 /mm3 (0.0-5.0) 04/08/17 15:01 CSF RBC 58.0 /mm3 (0.0-0.0) H 04/08/17 15:01 CSF Total Cell Counted (0-0) 04/08/17 15:01 CSF Monos/Macrophages TEST NOT PERFORMED 04/08/17 15:01 CSF Comment TEST NOT PERFORMED 04/08/17 15:01 CSF Glucose 56 mg/dL (40-70) 04/08/17 15:01 CSF LDH 10 U/L (<=25) 04/08/17 15:01 CSF Total Protein 46.0 mg/dL (12-60) 04/08/17 15:01 Vancomycin Trough 5.1 ug/mL (5.0-10.0) 04/10/17 03:24 HIV 1&2 Antibody Screen Negative (NEGATIVE) 04/10/17 03:24 Influenza Typ A,B (EIA) Negative for flu a/b (NEGATIVE) 04/08/17 13:09 Discharge Exam - Head Exam Head Exam: NORMOCEPHALIC Discharge Plan - Follow Up Plan Condition: STABLE Disposition: HOME/ ROUTINE Instructions: Migraine Headache (DC), Acute Bronchitis (GEN) Additional Instructions: Follow up with Dr Kurtz within 1 week.
== END 2017-04-12 12:55 | disposition home or self-care (01) | DRG 21 ==
LOC: C.ER 12:10 → C.9E 14:58 → C.6T 17:48
PROVIDERS: ADMIT Internal Medicine; ATTEND Internal Medicine
PROC: 009U3ZX Drainage of Spinal Canal, Percutaneous Approach, Diagnostic (ICD-10-PCS; principal; 2017-04-08)
DX: A87.9 Viral meningitis, unspecified (principal); A86 Unspecified viral encephalitis; J40 Bronchitis, not specified as acute or chronic